=== PATIENT | female | born 1975 | race Caucasian/White ===

== ENCOUNTER → 2017-07-04 | Outpatient (CLI) | payer BC ==
--- NOTE | 2017-07-05 07:56 | MM ---
Reason for exam: follow-up at short interval from prior study. Last mammogram was performed 3 months ago. History: Family history of breast cancer in aunt and breast cancer in grandmother. Physical Findings: Nurse did not find any significant physical abnormalities on exam. MG 3D Diag Mammo W/Cad RT CC and MLO view(s) were taken of the right breast. Prior study comparison: March 31, 2017, right breast MG 3d work up w/cad RT. March 29, 2017, bilateral MG 3d screening mammo w/cad. The breast tissue is heterogeneously dense. This may lower the sensitivity of mammography. Finding: There are typically benign round, regional calcifications in the right breast. There is no discrete abnormality. These results were verbally communicated with the patient and result sheet given to the patient on 07/04/17. ASSESSMENT: Benign, BI-RAD 2 RECOMMENDATION: Return to routine screening mammogram schedule for both breasts. Back on schedule.
== END | disposition home or self-care (01) ==
LOC: RADMAMWWP 14:34
PROVIDERS: ATTEND Obstetrics & Gynecology
DX: R92.8 Other abnormal and inconclusive findings on diagnostic imaging of breast (principal)
CPT/HCPCS: 77065; G0279

== ENCOUNTER → 2018-09-06 | Outpatient (CLI) | payer BC ==
[2018-09-06 11:18] VITALS: BP 135/85; PULSE 78; RESP 16; TEMP 98.3; BMI 27.9
--- NOTE | 2018-09-06 11:56 | P.HPOB ---
History of Present Illness H&P Date: 09/06/18 Chief Complaint: The patient is here for her routine gynecologic exam and ma mmogram. This is a 43-year-old G3 PIII with an LMP of 2011. The patient is status post vaginal hysterectomy for benign reasons. The patient is without gynecologic complaints and denies any significant hot flashes. She had a previous abnormal mammogram which did require a right-sided workup and short-term follow-up which was felt to be benign. She is returning to screening mammograms. Review of Systems The patient has gained 3 pounds over the last year. She denies cardiac or G.I. problems. Respiratory: she has had some sinus congestion related to seasonal allergies. 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 History of Any Multi-Drug Resistant Organisms: None Reported Past Surgical History: Hysterectomy Additional Past Surgical History / Comment(s): Endometrial ablation in 2010. Vaginal hysterectomy 2011. Past Psychological History: No Psychological Hx Reported Smoking Status: Never smoker Past Alcohol Use History: Occasional (5 per week) Past Drug Use History: None Reported Additional History: She has been since 2014. 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 - Past Family History Grandfather Additional Family Medical History / Comment(s): Grandfather had heart disease. Aunt Family Medical History: Cancer Additional Family Medical History / Comment(s): Breast cancer Grandmother Family Medical History: Cancer Additional Family Medical History / Comment(s): Breast cancer. Medications and Allergies Home Medications Medication Instructions Recorded Confirmed Type No Known Home Medications 09/06/18 09/06/18 History Allergies Allergy/AdvReac Type Severity Reaction Status Date / Time No Known Allergies Allergy Verified 09/06/18 11:14 Exam Vital Signs Temp Pulse Resp BP Pulse Ox 09/06/18 11:15 98.3 F 78 16 135/85 98 Intake and Output 09/05/18 09/06/18 09/06/18 22:59 06:59 14:59 Other: Weight 73.936 kg Height 5'4", weight 163 pounds, BMI 28.0. This is a well-developed well-nourished weight female who is alert and oriented times 3 in no acute distress. HEENT: Within normal limits. NECK: Supple without mass or thyromegaly. CHEST AND LUNGS: Clear to auscultation. HEART: Regular rate and rhythm. BREASTS: Are without mass or discharge. AXILLARY EXAM: Negative for adenopathy. BACK: Negative for CVA tenderness. ABDOMEN: Soft, nontender, without palpable masses. PELVIC EXAM: External genitalia appears normal. Vagina appears normal. There is no evidence of prolapse. Bimanual examination is negative for mass or tenderness. RECTAL EXAM: Rectal exam is negative for mass or tenderness and is negative for occult blood. EXTREMITIES: Nontender. IMPRESSION: 1. 43-year-old female status post of vaginal hysterectomy for benign reasons with normal gynecologic exam. PLAN: 1. Pap smears have been discontinued. 2. Self breast awareness was discussed with the patient. 3. Screening mammogram will be done today. I recommended that she continue yearly mammograms because of her family history of 2 second-degree relatives with breast cancer. 4. Osteoporosis prevention was discussed. I have stressed the importance of adequate calcium, vitamin D and regular exercise. Recommended amounts of calcium and vitamin D were also discussed. 5. She was advised to return in one year for her annual well woman exam.
--- NOTE | 2018-09-07 13:24 | MM ---
Reason for exam: screening (asymptomatic). Last mammogram was performed 1 year and 2 months ago. History: Family history of breast cancer in aunt and breast cancer in grandmother. Physical Findings: A clinical breast exam by your physician is recommended on an annual basis and results should be correlated with mammographic findings. MG 3D Screening Mammo W/Cad Bilateral CC and MLO view(s) were taken. Prior study comparison: July 04, 2017, right breast MG 3d diag mammo w/cad RT. March 31, 2017, right breast MG 3d work up w/cad RT. The breast tissue is heterogeneously dense. This may lower the sensitivity of mammography. There are benign appearing round calcifications bilaterally. There is no discrete abnormality. ASSESSMENT: Benign, BI-RAD 2 RECOMMENDATION: Routine screening mammogram of both breasts in 1 year.
== END | disposition home or self-care (01) ==
LOC: WWCWWP 11:41
PROVIDERS: ATTEND Obstetrics & Gynecology
DX: Z12.31 Encounter for screening mammogram for malignant neoplasm of breast (principal)
CPT/HCPCS: 77063; 77067

== ENCOUNTER → 2022-02-16 | Outpatient (CLI) | payer BC ==
[2022-02-16 15:32] VITALS: BP 117/80; PULSE 65; RESP 17; TEMP 98
--- NOTE | 2022-02-16 16:06 | P.HPOB ---
History of Present Illness H&P Date: 02/16/22 Chief Complaint: The patient is here for her routine gynecologic exam and ma mmogram. This is a 46-year-old with an LMP of 2011. She is status post vaginal hysterectomy in 2011 for benign reasons. She is without gynecologic complaints and denies any menopausal symptoms. Review of Systems Weight has been stable over the past 3 years. She denies respiratory, cardiac, or GI problems. 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 History of Any Multi-Drug Resistant Organisms: None Reported Past Surgical History: Hysterectomy Additional Past Surgical History / Comment(s): Endometrial ablation in 2010. Vaginal hysterectomy 2011. Past Psychological History: No Psychological Hx Reported Smoking Status: Never smoker Past Alcohol Use History: Occasional (5 per week) Past Drug Use History: None Reported Additional History: She has been been since 2014. 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 - Past Family History Grandfather Additional Family Medical History / Comment(s): Grandfather had heart disease. Aunt Family Medical History: Cancer Additional Family Medical History / Comment(s): Breast cancer Grandmother Family Medical History: Cancer Additional Family Medical History / Comment(s): Breast cancer. Medications and Allergies Home Medications Medication Instructions Recorded Confirmed Type No Known Home Medications 09/06/18 02/16/22 History Allergies Allergy/AdvReac Type Severity Reaction Status Date / Time No Known Allergies Allergy Verified 09/06/18 11:14 Exam Vital Signs Temp Pulse Resp BP Pulse Ox 02/16/22 15:29 98 F 65 17 117/80 99 Intake and Output 02/16/22 02/16/22 02/16/22 06:59 14:59 22:59 Other: Weight 72.575 kg Height 5 feet 4 inches, weight 160 pounds, BMI 27.5. This is a well-developed well-nourished white female who is alert and oriented times 3 in no acute distress. HEENT: Within normal limits. NECK: Supple without mass or thyromegaly. CHEST AND LUNGS: Clear to auscultation. HEART: Regular rate and rhythm. BREASTS: Are without mass or discharge. AXILLARY EXAM: Negative for adenopathy. BACK: Negative for CVA tenderness. ABDOMEN: Soft, nontender, without palpable masses. PELVIC EXAM: External genitalia appears normal. Vagina appears normal. There is no evidence of prolapse. Bimanual examination is negative for mass or tenderness. RECTAL EXAM: Rectovaginal exam is negative for mass or tenderness and is negative for occult blood. EXTREMITIES: Nontender. IMPRESSION: 1. 46-year-old female who is status post vaginal hysterectomy for benign reasons, with normal gynecologic exam. PLAN: 1. Pap smears have been discontinued. 2. Self breast awareness was discussed with the patient. We have also discussed symptoms associated with inflammatory breast cancer. 3. Screening mammogram will be done today. 4. Osteoporosis prevention was discussed. I have stressed the importance of adequate calcium, vitamin D and regular exercise. Recommended amounts of calcium and vitamin D were also discussed. 5. She was advised to return in one year for her annual well woman exam.
--- NOTE | 2022-02-17 15:39 | MM ---
Reason for Exam: Screening (asymptomatic). Last mammogram was performed 3 year(s) and 5 month(s) ago. Patient History: Menarche at age 15. First Full-Term at age 27. Hysterectomy at age 37. Patient has history of breast feeding. Paternal grandmother had breast cancer, age 92. Paternal aunt had breast cancer, age 70. Risk Values: Robyn 5 year model risk: 0.9%. NCI Lifetime model risk: 10.7%. Prior Study Comparison: 03/31/2017 Right Diagnostic Mammogram, [facility]. 07/04/2017 Right Diagnostic Mammogram, [facility]. 09/06/2018 Bilateral Screening Mammogram, [facility]. Tissue Density: The breast tissue is heterogeneously dense. This may lower the sensitivity of mammography. Findings: Analyzed By CAD. There is no suspicious group of microcalcifications or new suspicious mass in either breast. Overall Assessment: Negative, BI-RAD 1 Management: Screening Mammogram of both breasts in 1 year. A clinical breast exam by your physician is recommended on an annual basis and results should be correlated with mammographic findings. Electronically signed and approved by: Bennett Bond DO
== END ==
LOC: WWCWWP 15:08
PROVIDERS: ATTEND Obstetrics & Gynecology
DX: Z01.419 Encounter for gynecological examination (general) (routine) without abnormal findings (principal); Z12.31 Encounter for screening mammogram for malignant neoplasm of breast; Z90.710 Acquired absence of both cervix and uterus
CPT/HCPCS: 77063; 77067

== ENCOUNTER → 2023-05-25 | Outpatient (CLI) | payer BC ==
[2023-05-25 10:18] VITALS: BP 132/92; PULSE 77; RESP 16; TEMP 98.1
--- NOTE | 2023-05-25 10:58 | P.HPOB ---
History of Present Illness H&P Date: 05/25/23 Chief Complaint: The patient is here for her routine gynecologic exam and ma mmogram. This is a 48-year-old with an LMP of 2011. The patient is status post vaginal hysterectomy in 2011 for benign reasons. She is without gynecologic complaints. She denies any hot flashes. Review of Systems The patient's weight has been stable over the last year. She denies respiratory, cardiac, or G.I. problems. 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 History of Any Multi-Drug Resistant Organisms: None Reported Past Surgical History: Hysterectomy Additional Past Surgical History / Comment(s): Endometrial ablation in 2010. Vaginal hysterectomy 2011. Past Psychological History: No Psychological Hx Reported Smoking Status: Never smoker Past Alcohol Use History: Occasional (4 drinks per week.) Past Drug Use History: None Reported Additional History: She has been since 2014. 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 - Past Family History Grandfather Additional Family Medical History / Comment(s): Grandfather had heart disease. Aunt Family Medical History: Cancer Additional Family Medical History / Comment(s): Breast cancer Grandmother Family Medical History: Cancer Additional Family Medical History / Comment(s): Breast cancer. Medications and Allergies Home Medications Medication Instructions Recorded Confirmed Type No Known Home Medications 09/06/18 05/25/23 History Allergies Allergy/AdvReac Type Severity Reaction Status Date / Time No Known Allergies Allergy Verified 05/25/23 09:55 Exam Vital Signs Temp Pulse Resp BP Pulse Ox 05/25/23 10:00 98.1 F 77 16 132/92 99 Intake and Output 05/24/23 05/25/23 05/25/23 22:59 06:59 14:59 Other: Weight 73.028 kg Height 5 feet 4 inches, weight 161 pounds, BMI 27.6. This is a well-developed well-nourished white female who is alert and oriented times 3 in no acute distress. HEENT: Within normal limits. NECK: Supple without mass or thyromegaly. CHEST AND LUNGS: Clear to auscultation. HEART: Regular rate and rhythm. BREASTS: Are without mass or discharge. AXILLARY EXAM: Negative for adenopathy. BACK: Negative for CVA tenderness. ABDOMEN: Soft, nontender, without palpable masses. PELVIC EXAM: External genitalia appears normal. Vagina appears normal. There is no evidence of prolapse. Bimanual examination is negative for mass or tenderness. RECTAL EXAM: Rectovaginal exam is negative for mass or tenderness and is negative for occult blood. EXTREMITIES: Nontender. IMPRESSION: 1. 48-year-old female status post vaginal hysterectomy for benign reasons, with normal gynecologic exam. 2. Elevated blood pressure. PLAN: 1. Pap smears have been discontinued. 2. Self breast awareness was discussed with the patient. We have also discussed symptoms associated with inflammatory breast cancer. 3. Screening mammogram will be done today. 4. Osteoporosis prevention was discussed. I have stressed the importance of adequate calcium, vitamin D and regular exercise. Recommended amounts of calcium and vitamin D were also discussed. 5. She will call if she is having problems with menopausal symptoms. We have discussed how this can occur during the upcoming years. 6. I recommended that she establish with a primary care physician. She states she will do this in the upcoming year. I have recommended that she check her o wn blood pressure at home on a regular basis since she does have access to a blood pressure cuff. She should follow-up with a primary care physician for elevated blood pressures. 7. I have also recommended that she discuss with a primary care physician colorectal cancer screening and we have discussed different options including colonoscopy and Cologuard testing. 8. She was advised to return in one year for her annual well woman exam.
== END ==
LOC: WWCWWP 09:46
PROVIDERS: ATTEND Obstetrics & Gynecology
DX: Z12.31 Encounter for screening mammogram for malignant neoplasm of breast (principal); R03.0 Elevated blood-pressure reading, without diagnosis of hypertension; Z90.710 Acquired absence of both cervix and uterus; Z80.3 Family history of malignant neoplasm of breast
CPT/HCPCS: 77063; 77067

== ENCOUNTER → 2024-07-10 | Outpatient (CLI) | payer BC ==
[2024-07-10 10:49] VITALS: BP 152/96; PULSE 67; RESP 16; TEMP 98
--- NOTE | 2024-07-10 11:25 | P.HPOB ---
History of Present Illness H&P Date: 07/10/24 Chief Complaint: The patient is here for her routine gynecologic exam and ma mmogram. This is a 49-year-old with an LMP of 2011. She is status post vaginal hysterectomy in 2011 for benign reasons. She is experiencing occasional right lower quadrant/pelvic pain movements which are brief and she believes they are related to ovulation since they seem to be fairly cyclical. They occur about monthly. She is otherwise without gynecologic complaints. She denies any si gnificant hot flashes. Review of Systems The patient has lost 3 pounds over the last year. She denies respiratory, cardiac, or G.I. problems. 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 History of Any Multi-Drug Resistant Organisms: None Reported Past Surgical History: Hysterectomy Additional Past Surgical History / Comment(s): Endometrial ablation in 2010. Vaginal hysterectomy 2011. Past Psychological History: No Psychological Hx Reported Smoking Status: Never smoker Past Alcohol Use History: Occasional (3 or 4 drinks per week.) Past Drug Use History: None Reported Additional History: She has been since 2014. She has been with her current boyfriend since approximately 2020 and they live together. - Past Family History Grandfather Additional Family Medical History / Comment(s): Grandfather had heart disease. Aunt Family Medical History: Cancer Additional Family Medical History / Comment(s): Breast cancer Grandmother Family Medical History: Cancer Additional Family Medical History / Comment(s): Breast cancer. Medications and Allergies Home Medications Medication Instructions Recorded Confirmed Type Multivitamins, Thera [Multivitamin 1 tab PO DAILY 07/10/24 07/10/24 History (formulary)] Allergies Allergy/AdvReac Type Severity Reaction Status Date / Time No Known Allergies Allergy Verified 07/10/24 10:40 Exam Vital Signs Temp Pulse Resp BP 07/10/24 10:42 98 F 67 16 152/96 Intake and Output 07/09/24 07/10/24 07/10/24 22:59 06:59 14:59 Other: Weight 71.668 kg Height 5 feet 4 inches, weight 158 pounds, BMI 27.1. This is a well-developed well-nourished white female who is alert and oriented times 3 in no acute distress. HEENT: Within normal limits. NECK: Supple without mass or thyromegaly. CHEST AND LUNGS: Clear to auscultation. HEART: Regular rate and rhythm. BREASTS: Are without mass or discharge. AXILLARY EXAM: Negative for adenopathy. BACK: Negative for CVA tenderness. ABDOMEN: Soft without palpable masses. There is mild right lower quadrant tenderness with deep palpation. There is no rebound tenderness. PELVIC EXAM: External genitalia appears normal. Vagina appears normal. There is no evidence of prolapse. Bimanual examination is negative for mass, but there is mild tenderness on the right side mostly with the abdominal her and during the bimanual examination. RECTAL EXAM: Rectovaginal exam is negative for mass or tenderness and is negative for occult blood. EXTREMITIES: Nontender. IMPRESSION: 1. 49-year-old premenopausal female status post vaginal hysterectomy for benign reasons, with cyclic brief right lower quadrant and right pelvic pains, with mild right lower quadrant tenderness on exam today. Differential include ovulatory discomfort, ovarian cyst, other ovarian neoplasm, or non-gynecologic pain. 2. Elevated blood pressure. PLAN: 1. Pap smears have been discontinued. 2. Self breast awareness was discussed with the patient. We have also discussed symptoms associated with inflammatory breast cancer. 3. Screening mammogram will be done today. 4. Pelvic ultrasound slip was given to the patient for this. 5. Osteoporosis prevention was discussed. I have stressed the importance of adequate calcium, vitamin D and regular exercise. Recommended amounts of calcium and vitamin D were also discussed. 6. We have discussed her elevated blood pressure. I have recommended that she check her own blood pressures at home on a regular basis since she does have this ability. She will follow up with her PCP for blood pressure elevations. 7. She was advised to return in one year for her annual well woman exam and as needed.
--- NOTE | 2024-07-10 12:06 | MM ---
Reason for Exam: Screening (asymptomatic). Last mammogram was performed 1 year(s) and 2 month(s) ago. Patient History: Menarche at age 15. First Full-Term at age 27. Hysterectomy at age 37. Patient has history of breast feeding. Paternal grandmother had breast cancer, age 92. Paternal aunt had breast cancer, age 70. Risk Values: Robyn 5 year model risk: 1.0%. NCI Lifetime model risk: 10.3%. Prior Study Comparison: 09/06/2018 Bilateral Screening Mammogram, [facility]. 02/16/2022 Bilateral MG 3D screening mammo w/cad, [facility]. 05/25/2023 Bilateral MG 3D screening mammo w/cad, [facility]. Tissue Density: The breasts are heterogeneously dense, which may obscure small masses. Findings: Analyzed By CAD. There is no suspicious group of microcalcifications or new suspicious mass in either breast. Overall Assessment: Negative, BI-RAD 1 Management: Screening Mammogram of both breasts in 1 year. . Patient should continue monthly self-breast exams. A clinical breast exam by your physician is recommended on an annual basis. This exam should not preclude additional follow-up of suspicious palpable abnormalities. Note on Robyn scores and lifetime risk: 1. A Robyn score greater than 3% is considered moderate risk. If this is the case, consider specialist referral to assess eligibility for a risk reducing agent. 2. If overall lifetime risk for the development of breast cancer is 20% or higher, the patient may qualify for future screening with alternating mammogram and breast MRI. [facility], , 07/10/2024 12:04 PM. Electronically signed and approved by: Freddie Hassan M.D.
== END ==
LOC: WWCWWP 10:25
PROVIDERS: ATTEND Obstetrics & Gynecology
DX: Z12.31 Encounter for screening mammogram for malignant neoplasm of breast (principal); Z80.3 Family history of malignant neoplasm of breast; Z90.710 Acquired absence of both cervix and uterus; Z85.3 Personal history of malignant neoplasm of breast
CPT/HCPCS: 77063; 77067